=== PATIENT | female | born 1975 | race Hispanic/Latino ===

== ENCOUNTER 2023-01-22 09:38 | Observation (INO) | payer OTHER ==
[2022-12-15 15:32] LABS: BASOPHILS # (AUTO) 0.1 (0.0-0.1); BASOPHILS % 0.7 % (0.0-1.0); EOSINOPHILS # (AUTO) 0.1 (0.0-0.4); EOSINOPHILS % 1.2 % (0.0-6.0); HEMATOCRIT 34.4 % (34.2-44.1); HEMOGLOBIN 9.6 g/dL (12.0-16.0); LYMPHOCYTES # (AUTO) 2.8 (1.0-3.2); LYMPHOCYTES % 32.2 % (18.0-39.1); MEAN CORPUSCULAR HEMOGLOBIN 21.4 pg (28-32); MEAN CORPUSCULAR HGB CONC 27.9 g/dL (31-35); MEAN CORPUSCULAR VOLUME 76.8 fL (81-99); MONOCYTES # (AUTO) 0.6 (0.2-0.8); MONOCYTES % 6.4 % (4.4-11.3); NEUTROPHILS # (AUTO) 5.1 (2.1-6.9); NEUTROPHILS % 59.2 % (38.7-80.0); PLATELET COUNT 256 x10e3/uL (140-360); RED BLOOD COUNT 4.48 x10e6/uL (3.6-5.1); RED CELL DISTRIBUTION WIDTH 16.4 % (11.7-14.4)
[2022-12-15 15:35] LABS: CLARITY,URINE SL CLOUDY (CLEAR); COLOR,URINE YELLOW (YELLOW); KETONES,URINE NEGATIVE (NEGATIVE); LEUKOCYTE ESTERASE ,URINE SMALL (NEGATIVE); NITRITE,URINE NEGATIVE (NEGATIVE); PROTEIN,URINE DIPSTICK NEGATIVE (NEGATIVE); URINE UROBILINOGEN 0.2 mg/dL (0.2 - 1)
[2022-12-15 16:54] LABS: THYROID STIMULATING HORMONE 1.201 uIU/mL (0.350-4.940)
[2022-12-15 17:25] LABS: FREE T4 (FREE THYROXINE) 1.16 ng/dL (0.8-1.8)
[2023-01-19 14:47] LABS: BASOPHILS # (AUTO) 0.1 (0.0-0.1); BASOPHILS % 0.7 % (0.0-1.0); EOSINOPHILS % 0.4 % (0.0-6.0); HEMATOCRIT 29.1 % (34.2-44.1); HEMOGLOBIN 8.6 g/dL (12.0-16.0); LYMPHOCYTES # (AUTO) 2.4 (1.0-3.2); LYMPHOCYTES % 32.4 % (18.0-39.1); MEAN CORPUSCULAR HEMOGLOBIN 22.5 pg (28-32); MEAN CORPUSCULAR HGB CONC 29.6 g/dL (31-35); MEAN CORPUSCULAR VOLUME 76.2 fL (81-99); MONOCYTES # (AUTO) 0.5 (0.2-0.8); MONOCYTES % 6.9 % (4.4-11.3); NEUTROPHILS # (AUTO) 4.3 (2.1-6.9); NEUTROPHILS % 59.2 % (38.7-80.0); PLATELET COUNT 197 x10e3/uL (140-360); RED BLOOD COUNT 3.82 x10e6/uL (3.6-5.1); RED CELL DISTRIBUTION WIDTH 19.2 % (11.7-14.4)
[2023-01-19 14:52] LABS: CLARITY,URINE TURBID (CLEAR); COLOR,URINE RED (YELLOW); KETONES,URINE 1+ (NEGATIVE); LEUKOCYTE ESTERASE ,URINE LARGE (NEGATIVE); NITRITE,URINE POSITIVE (NEGATIVE); PROTEIN,URINE DIPSTICK >=300 (NEGATIVE); URINE UROBILINOGEN 2 mg/dL (0.2 - 1)
[2023-01-19 15:32] LABS: THYROID STIMULATING HORMONE 0.068 uIU/mL (0.350-4.940)
[2023-01-21 11:20] LABS: BASOPHILS % 0.6 % (0.0-1.0); EOSINOPHILS # (AUTO) 0.1 (0.0-0.4); EOSINOPHILS % 1.1 % (0.0-6.0); HEMATOCRIT 27.3 % (34.2-44.1); LYMPHOCYTES # (AUTO) 2.2 (1.0-3.2); MEAN CORPUSCULAR HEMOGLOBIN 22.5 pg (28-32); MEAN CORPUSCULAR HGB CONC 29.3 g/dL (31-35); MEAN CORPUSCULAR VOLUME 76.9 fL (81-99); MONOCYTES # (AUTO) 0.5 (0.2-0.8); MONOCYTES % 7.5 % (4.4-11.3); NEUTROPHILS # (AUTO) 3.6 (2.1-6.9); NEUTROPHILS % 56.5 % (38.7-80.0); PLATELET COUNT 185 x10e3/uL (140-360); RED BLOOD COUNT 3.55 x10e6/uL (3.6-5.1); RED CELL DISTRIBUTION WIDTH 19.5 % (11.7-14.4)
[2023-01-21 12:25] LABS: EOSINOPHILS % (MANUAL) 1 % (0-7); LYMPHOCYTES % (MANUAL) 30 % (19-48); MONOCYTES % (MANUAL) 5 % (3.4-9.0); NEUTROPHILS % (MANUAL) 55 % (40-74)
[2023-01-21 12:26] LABS: PLATELET ESTIMATE ADEQUATE; PLATELET MORPHOLOGY COMMENT NORMAL; RBC MORPHOLOGY COMMENT NORMAL
[~2023-01-22] VITALS: Ht 165.1 cm; Wt 79.8 kg
[~2023-01-22 09:38] MED LIST: FEROSUL325 MG PO; LEVOTHYROXINE100 MC2 PO; VITAMIN C1000 MG PO
[2023-01-22] MEDS ORDERED: CEFAZOLIN SODIUM 2 GM ONE (10:32)
[2023-01-22] MEDS ORDERED: FENTANYL CITRATE/PF 100MCG/2 ML INJ ONE ×2 (11:20→16:12)
[2023-01-22] MEDS ORDERED: MIDAZOLAM HCL 2 MG/2 ML VIAL ONE (11:20)
[2023-01-22] MEDS ORDERED: BUPIVACAINE 0.5%/EPI 30 ML SDV INJ ONE (12:38)
[2023-01-22] MEDS ORDERED: POVIDONE IODINE 0.05% 0.05 % ML PO ONE (12:41)
[2023-01-22] MEDS ORDERED: ROCURONIUM BROMIDE 10 MG/ML 5ML VIAL IV ONE (12:41)
[2023-01-22] MEDS ORDERED: DEXAMETHASONE SOD PHOS INJ 4 MG/ML SDV ONE (12:41)
[2023-01-22] MEDS ORDERED: LIDOCAINE HCL 2% LOCAL INJ 5 ML SDV VIAL INJ ONE (12:41)
[2023-01-22] MEDS ORDERED: PROPOFOL IV EMULSION 10 MG/ML 20 ML VIAL ONE (12:41)
[2023-01-22] MEDS ORDERED: ONDANSETRON HCL INJ 2MG/ML 2ML 2 MG/ML VIAL ONE (12:41)
[2023-01-22] MEDS ORDERED: SEVOFLURANE INHAL SOLN 250 ML PEN BTL ONE (12:41)
[2023-01-22] MEDS ORDERED: SUGAMMADEX SODIUM 200 MG/2 ML VIAL IV ONE (15:13)
[2023-01-22] MEDS ORDERED: ACETAMINOPHEN 325 MG TAB PO PRN (15:45)
[2023-01-22] MEDS ORDERED: DIPHENHYDRAMINE HCL 25 MG CAP PO PRN (15:45)
[2023-01-22] MEDS ORDERED: ONDANSETRON HCL INJ 2MG/ML 2ML 2 MG/ML VIAL IV PRN (15:45)
[2023-01-22] MEDS ORDERED: DOCUSATE SODIUM 100 MG CAP PO PRN (15:45)
[2023-01-22] MEDS ORDERED: BISACODYL 10 MG SUPP PR PRN (15:45)
[2023-01-22] MEDS ORDERED: D5.45%NS/KCL 20MEQ 1,000 ML IV SCH (15:45)
[2023-01-22 16:46] VITALS: BP 135/82
[2023-01-22 16:49] VITALS: BP 135/82
[2023-01-22] MEDS: Morphine 4mg INJECTION 4 MG/ML INJ IV PRN ×4 (16:58→23:50)
[2023-01-22] MEDS: KETOROLAC TROMETHAMINE 30 MG/ML VIAL IV SCH (17:02)
[2023-01-22 17:03] VITALS: BP 135/82
[2023-01-22] MEDS: LACTATED RINGER'S 1,000 ML INJ SCH (17:50)
[2023-01-22] MEDS: SIMETHICONE 80 MG CHEW PO SCH ×2 (18:35→21:29)
[2023-01-22 20:00] VITALS: BP 135/88
[2023-01-22 20:10] VITALS: BP 135/88
[2023-01-22] MEDS: CEFAZOLIN SODIUM 2 GM in SODIUM CHLORIDE 0.9% 100 ML IV SCH (21:29)
[2023-01-23 00:14] VITALS: BP 126/69
[2023-01-23] MEDS: LACTATED RINGER'S 1,000 ML INJ SCH ×3 (02:23→17:45)
[2023-01-23 04:00] VITALS: BP 125/78
[2023-01-23] MEDS: CEFAZOLIN SODIUM 2 GM in SODIUM CHLORIDE 0.9% 100 ML IV SCH ×2 (05:18→12:29)
[2023-01-23] MEDS: KETOROLAC TROMETHAMINE 30 MG/ML VIAL IV SCH ×4 (05:19→17:34)
[2023-01-23 05:43] LABS: BASOPHILS % 0.3 % (0.0-1.0); HEMATOCRIT 25.8 % (34.2-44.1); HEMOGLOBIN 7.5 g/dL (12.0-16.0); LYMPHOCYTES # (AUTO) 1.4 (1.0-3.2); LYMPHOCYTES % 12.6 % (18.0-39.1); MEAN CORPUSCULAR HEMOGLOBIN 22.4 pg (28-32); MEAN CORPUSCULAR HGB CONC 29.1 g/dL (31-35); MONOCYTES # (AUTO) 0.6 (0.2-0.8); MONOCYTES % 5.8 % (4.4-11.3); NEUTROPHILS # (AUTO) 8.7 (2.1-6.9); NEUTROPHILS % 80.7 % (38.7-80.0); PLATELET COUNT 211 x10e3/uL (140-360); RED BLOOD COUNT 3.35 x10e6/uL (3.6-5.1); RED CELL DISTRIBUTION WIDTH 19.3 % (11.7-14.4)
[2023-01-23] MEDS ORDERED: LEVOTHYROXINE SODIUM 100 MCG TAB PO SCH (06:00)
[2023-01-23 06:07] LABS: ANION GAP 13.9 mmol/L (8-16); CALCIUM 8.7 mg/dL (8.4-10.2); CREATININE, SERUM 0.66 mg/dL (0.57-1.11); POTASSIUM 3.9 mmol/L (3.5-5.1)
[2023-01-23 08:56] VITALS: BP 107/73
[2023-01-23] MEDS ORDERED: FERROUS SULFATE 325 MG TAB PO SCH (09:00)
[2023-01-23] MEDS ORDERED: ASCORBIC ACID 100 MG PO SCH (09:00)
[2023-01-23] MEDS: SIMETHICONE 80 MG CHEW PO SCH ×3 (09:31→17:35)
[2023-01-23 09:35] VITALS: BP 107/73
[2023-01-23 12:27] VITALS: BP 103/67
[2023-01-23] MEDS ORDERED: MOTRIN200 MG PO (16:01)
[2023-01-23 16:15] VITALS: BP 116/78
== END 2023-01-23 18:26 | disposition home or self-care (01) ==
LOC: OR 09:38 → PACU V 14:18 → MED/SURG 16:39
PROVIDERS: ADMIT Obstetrics & Gynecology; ATTEND Obstetrics & Gynecology
DX: D25.9 Leiomyoma of uterus, unspecified (principal); N92.0 Excessive and frequent menstruation with regular cycle; E03.9 Hypothyroidism, unspecified; D64.9 Anemia, unspecified; Z20.822 Contact with and (suspected) exposure to COVID-19; Z01.818 Encounter for other preprocedural examination
CPT/HCPCS: 0223U ×2; 36415 ×4; 58571; 80048; 81003 ×2; 84439 ×2; 84443 ×2; 84702 ×2; 85025 ×4; 86850 ×2; 86900 ×2; 86920; 88307; 88342; 94799 ×2; C1713; G0378 ×2; J1100; J1885; J2001; J2250; J2270; J2405; J2704; J3010; J7050 ×2; J7121 ×2